=== PATIENT | male | born 1945 | race Caucasian/White ===

== ENCOUNTER 2016-08-06 12:30 | Day surgery (SDC) | payer MEDICARE, OTHER ==
[~2016-08-06] VITALS: Ht 165.1 cm; Wt 75.0 kg
[~2016-08-06 12:30] MED LIST: ASPI-973 PO; ATOR20TA PO; CHOL500011 PO; CIPR-198 PO; KEN25CR EXT; LISI-567 PO; METH750T3 PO; MULT-1073 PO; OMEG300C3 PO; Sodium Chloride LOK Flush 10 mL Syringe IV PRN; UBID50TA3 PO; fentaNYL-PF 50 mCg/mL 2 mL Inj IVPUSH PRN
[2016-08-06 13:16] VITALS: BP 174/103; PULSE 66; RESP 16; O2SAT 96
[2016-08-06] MEDS: 0.9% Sodium Chloride 1,000 ML IV PRN ×3 (13:50→14:09)
--- NOTE | 2016-08-06 14:20 | PCM.ENDCOL ---
Colonoscopy Date of Service: Aug 06, 2016 Physician Paul Lizama MD Pre Procedure Diagnosis: Screening history of polyps Post Procedure Dx & Findings: Polyps hemorrhoids diverticula Procedure Colonoscopy PROCEDURE IN DETAIL: Prep adequate Withdrawal time 10 minutes After unremarkable rectal examination the Olympus video colonoscope was inserted patient's anal canal and was advanced to cecum. Landmarks were identified including the ileocecal valve and appendiceal orifice. Scope was withdrawn systematically. Visualized colonic mucosa showed healthy shiny mucosa with normal healthy-appearing vasculature. In the descending colon, there was a 2 mm polyp which was removed completely using cold snare. In the sigmoid colon, there were several small diverticuli. In the rectum retroflexion was done which showed hemorrhoids. Anal canal was inspected carefully on the way out and hemorrhoids noted. Impression Polyp 1 as well as complete removal Diverticuli Hemorrhoids Recommendation Repeat colonoscopy 5 years Diverticula diet Presedation Assessment Risks and Benefits Informed consent was obtained from the patient after all risks and benefits including but not limited to drug reaction, infection, pain, bleeding, perforation, as well as alternatives were discussed. Patient monitoring Continuous pulse oximetry, cardiac monitoring, blood pressure monitoring, IV access, and oxygen at 2L per nasal cannula. Periprocedural Fentanyl: Fentanyl 100mcg Incrementally Midazolam: Midazolam 5mg Incrementally Complications There were no periprocedural complications identified. Post Procedure Plan Post Procedure Recommendations 1. Restrict activities today. 2. Resume normal activities in the morning. 3. Resume medications. 4. Patient informed of normal post procedure side effects as bloating, drowsiness, blood streaking in the stool. 5. average risk CRCS. If colon polyps come back as: -Hyperplastic- can repeat colonoscopy in 10 years -Tubular adenoma- repeat colonoscopy in 5 years -Tubulovillous/villous adenoma- repeat colonoscopy in 3 years -If any dysplasia- return to clinic as soon as possible 6. Please don't hesitate to call me with any questions. Paul Lizama MD Aug 06, 2016 14:20
[2016-08-06 14:22] VITALS: BP 127/81; PULSE 67; RESP 14; O2SAT 95
[2016-08-06 14:31] VITALS: BP 133/69; PULSE 65; RESP 12; O2SAT 95
--- NOTE | 2016-08-08 20:05 | PATH ---
SURGICAL PATHOLOGY Attending Physician:Paul Lizama M.D. CASE STATUS: Signed Out PATIENT NAME: BATSHEVA GLEASON PID: [id number] : 1945 DATE COLLECTED:08/06/2016 00:00 SPECIMEN: Colon, Biopsy CLINICAL HISTORY: COLON POLYP 1). DESCENDING COLON POLYP FINAL DIAGNOSIS: Descending Colon, Polyp, Biopsy: Tubular adenoma; negative for high-grade dysplasia. ICD10: K63.5 GROSS DESCRIPTION: The specimen is received in one formalin filled container labeled with the patient's name, sublabeled "descending colon polyp" and consists of a 0.4 x 0.3 x 0.3 CM portion of tissue which is entirely submitted in one cassette. 08/07/2016 [facility] ICD-9 CODES: CPT CODES: 1: 05306 Electronically Signed Out Glenis Puente MD [facility], [place] [address] Technical component performed at [facility], [address] [place] [address] Ave[address], [place], [address]
== END 2016-08-06 23:59 | disposition home or self-care (01) ==
LOC: END 12:30
PROVIDERS: ATTEND Internal Medicine
DX: Z12.11 Encounter for screening for malignant neoplasm of colon (principal); Z86.010 Personal history of colon polyps; D12.4 Benign neoplasm of descending colon; K57.30 Diverticulosis of large intestine without perforation or abscess without bleeding; K64.9 Unspecified hemorrhoids; I10 Essential (primary) hypertension; E78.5 Hyperlipidemia, unspecified; Z79.82 Long term (current) use of aspirin
CPT/HCPCS: 45385; G0500; J2250; J3010; J7030